=== PATIENT | female | born 1960 | race American Indian/Alaskan Native ===

== ENCOUNTER 2017-04-01 16:44 | Inpatient (IN) | payer BC, MEDICAID ==
[2017-04-01 16:44] VITALS: BMI 28.3
--- NOTE | 2017-04-01 17:15 | ED PDOC ---
Arrival/HPI - General Time Seen by Provider: 04/01/17 17:02 Historian: Patient - Critical Care Critical Care Minutes: 30 minutes - History of Present Illness Narrative History of Present Illness (Text): 04/01/17 17:12 56 yo female, h/o HTN, ? hyperthyroidism, presents to the ED c/o shortness of breathe x 1 day. States that it's worse on excertion but also just at rest she gets shortness of breathe. Some lower extremity swelling that is getting worse. She's supposed to be on a water pill but she hasn't taken it in a while. Today she felt lightheaded with some tingling to both hands/fingers. No cough or fever. No vomiting or diarrhea. No chest pain. PMD: Dr. Mead. Sent her here with a script that says h/o HTN and uncontrolled hyperthyroid with sob, tachy and shakes. please evaluate. Past Medical History - Provider Review Nursing Documentation Reviewed: Yes - Cardiac Hx Cardiac Disorders: Yes Hx Hypertension: Yes - Pulmonary Hx Respiratory Disorders: No - Neurological Hx Neurological Disorder: Yes Hx Dizziness: Yes - HEENT Hx HEENT Disorder: No - Renal Hx Renal Disorder: No - Endocrine/Metabolic Hx Endocrine Disorders: No - Hematological/Oncological Hx Blood Disorders: No - Integumentary Hx Dermatological Disorder: No - Musculoskeletal/Rheumatological Hx Musculoskeletal Disorders: No - Gastrointestinal Hx Gall Bladder Disease: No - Genitourinary/Gynecological Hx Genitourinary Disorders: No - Psychiatric Hx Psychophysiologic Disorder: No Hx Substance Use: No - Surgical History Hx Section: Yes Hx Hysterectomy: Yes - Suicidal Assessment Feels Threatened In Home Enviroment: No Family/Social History - Physician Review Nursing Documentation Reviewed: Yes Family/Social History: No Known Family HX Smoking Status: Former Smoker Hx Alcohol Use: Yes (1 beer 3xa week) Hx Substance Use: No Hx Substance Use Treatment: No Allergies/Home Meds Allergies/Adverse Reactions: Allergies No Known Allergies Allergy (Verified 04/01/17 17:52) Home Medications: Home Meds Medication Instructions Recorded Confirmed Amlodipine Besylate [Amlodipine 1 tab PO DAILY 08/12/14 04/01/17 Besylate] Hydrochlorothiazide 1 tab PO DAILY 08/12/14 04/01/17 [Hydrochlorothiazide] Review of Systems - Physician Review All systems were reviewed & negative as marked: Yes - Review of Systems Constitutional: Normal. absent: Fevers Eyes: Normal ENT: Normal Respiratory: SOB. absent: Cough, Sputum, Wheezing Cardiovascular: Normal. absent: Chest Pain Gastrointestinal: Normal. absent: Abdominal Pain Genitourinary Female: Normal Musculoskeletal: Normal Skin: Normal Neurological: Normal Endocrine: Normal Hemo/Lymphatic: Normal Psychiatric: Normal Physical Exam Vital Signs Reviewed: Yes Vital Signs Temp Pulse Resp BP Pulse Ox 04/01/17 17:46 97.6 F 106 H 18 134/69 100 Temperature: Afebrile Blood Pressure: Normal Pulse: Tachycardic Respiratory Rate: Normal Appearance: Positive for: Well-Appearing, Non-Toxic, Comfortable Pain Distress: None Mental Status: Positive for: Alert and Oriented X 3 - Systems Exam Head: Present: Atraumatic, Normocephalic Pupils: Present: PERRL Extroacular Muscles: Present: EOMI Conjunctiva: Present: Normal Mouth: Present: Moist Mucous Membranes Neck: Present: Normal Range of Motion Respiratory/Chest: Present: Clear to Auscultation, Good Air Exchange. No: Respiratory Distress, Accessory Muscle Use Cardiovascular: Present: Regular Rate and Rhythm, Normal S1, S2. No: Murmurs Abdomen: Present: Normal Bowel Sounds. No: Tenderness, Distention, Peritoneal Signs Back: Present: Normal Inspection Upper Extremity: Present: Normal Inspection. No: Cyanosis, Edema Lower Extremity: Present: Normal Inspection, Swelling (b/l lower extremity). No : Edema Neurological: Present: GCS=15, CN II-XII Intact, Speech Normal Skin: Present: Warm, Dry, Normal Color. No: Rashes Psychiatric: Present: Alert, Oriented x 3, Normal Insight, Normal Concentration Medical Decision Making ED Course and Treatment: 04/01/17 17:17 56 yo female with shortness of breathe, leg swelling r/o CHF r/o ACS, less likely PE -- Labs -- CXR, EKG -- Lasix 40mg IV -- Oxygen 2L NC -- Reevaluate and disposition 04/01/17 18:32 Case signed out to Dr. Mahajan to f/u labs, CXR, reevaluate and disposition. - Critical Care Critical Care Minutes: 30 minutes - RAD Interpretation Radiology Orders: 04/01/17 17:10 CHEST PORTABLE [RAD] Stat - EKG Interpretation Interpreted by ED Physician: Yes (Sinus Tachy at 111 bpm with PAC, LAE, no ST elevations) Type: 12 lead EKG - Medication Orders Current Medication Orders: Discontinued Medications Furosemide (Lasix) 40 mg IVP STAT STA Stop: 04/01/17 17:10 Disposition/Present on Arrival - Present on Arrival Any Indicators Present on Arrival: No History of DVT/PE: No History of Uncontrolled Diabetes: No Urinary Catheter: No History Surgical Site Infection Following: None - Disposition Have Diagnosis and Disposition been Completed?: No Diagnosis: Shortness of breath Disposition Time: 18:33 Condition: FAIR Referrals: Lena Mead MD [Primary Care Provider] - Follow up with primary
[2017-04-01 18:33] LABS: ADD MANUAL DIFF? NO
[2017-04-01 18:44] LABS: BASO # 0.02 K/mm3 (0.0-2.0); BASO % 0.3 % (0.0-3.0); EOS # 0.2 (0.0-0.7); EOS % 2.8 % (1.5-5.0); GRAN # 2.95 (1.4-6.5); GRAN % 48.4 % (50.0-68.0); HEMATOCRIT 39.9 % (36.0-48.0); LYMPH # 2.4 (1.2-3.4); LYMPH % 38.7 % (22.0-35.0); MEAN CELL VOLUME 89.7 fL (80.0-105.0); MEAN CORPUSCULAR HEMOGLOBIN 29.9 pg (25.0-35.0); MEAN CORPUSCULAR HGB CONC 33.3 g/dl (31.0-37.0); MEAN PLATELET VOLUME 9.3 fl (7.0-11.0); MONO # 0.6 (0.1-0.6); MONO % 9.8 % (1.0-6.0); PLATELET COUNT 292 10^3/uL (120.0-450.0); WHITE BLOOD COUNT 6.1 10^3/ul (4.5-11.0)
[2017-04-01 18:48] LABS: BLOOD UREA NITROGEN 13 mg/dL (7-21); CARBON DIOXIDE 28 mmol/L (21-33); CHLORIDE 101 mmol/L (98-107); GFR AFRICAN-AMERICAN > 60; GLUCOSE,RANDOM 105 mg/dL (70-110); POTASSIUM 3.9 mmol/L (3.6-5.0); SODIUM 139 mmol/L (132-148)
[2017-04-01 18:52] LABS: INR 1.01 (0.93-1.08); PARTIAL THROMBOPLASTIN TIME 26.7 Seconds (23.7-30.8)
[2017-04-01 18:53] LABS: D DIMER 0.31 mg/L FEU (0-0.50)
[2017-04-01 19:10] LABS: TROPONIN I < 0.01 ng/mL
--- NOTE | 2017-04-01 20:47 | ED PDOC ---
Physical Exam Vital Signs Reviewed: Yes Vital Signs Temp Pulse Resp BP Pulse Ox 04/01/17 18:35 138/75 04/01/17 18:00 18 04/01/17 17:46 97.6 F 106 H 18 134/69 100 Temperature: Afebrile Blood Pressure: Normal Pulse: Tachycardic Respiratory Rate: Normal Appearance: Positive for: Well-Appearing, Non-Toxic, Comfortable Pain Distress: None Mental Status: Positive for: Alert and Oriented X 3 Medical Decision Making ED Course and Treatment: 04/01/17 19:00 Case signed out to me from the day shift by Dr. Francis, pending labs, imaging, reevaluation and disposition. The patient is a 56 year old female who presented to the emergency department earlier today for evaluation of shortness of breath. Patient had a EKG which showed sinus tahcycardai at 111 BPM with PAC, LAE, and no ST elevations. On reevaluation, the patient is resting comfortably. concern for high output failure secondary to hyperthyroid will obs case d/w dr ferguson will accept case 04/01/17 20:53 Chest X-ray Impression: As read by me, no acute findings. 04/02/17 02:31 - Lab Interpretations Lab Results: 04/01/17 18:23 04/01/17 18:23 Lab Results 04/01/17 18:23: TSH 3rd Generation < 0.02 L 04/01/17 18:23: Sodium 139, Potassium 3.9, Chloride 101, Carbon Dioxide 28, Anion Gap 14, BUN 13, Creatinine 0.7, Est GFR ( Amer) > 60, Est GFR (Non- Af Amer) > 60, Random Glucose 105, Calcium 10.0, Lactate Dehydrogenase 435, Total Creatine Kinase 32 L, Troponin I < 0.01, NT-Pro-B Natriuret Pep 370 04/01/17 18:23: WBC 6.1, RBC 4.45, Hgb 13.3, Hct 39.9, MCV 89.7, MCH 29.9, MCHC 33.3, RDW 14.0, Plt Count 292, MPV 9.3, Gran % 48.4 L, Lymph % (Auto) 38.7 H, [place] % (Auto) 9.8 H, Eos % (Auto) 2.8, Baso % (Auto) 0.3, Gran # 2.95, Lymph # 2.4, [place] # 0.6, Eos # 0.2, Baso # 0.02 04/01/17 18:23: PT 10.9, INR 1.01, APTT 26.7, D-Dimer, Quantitative 0.31 I have reviewed the lab results: Yes - RAD Interpretation Radiology Orders: 04/01/17 17:10 CHEST PORTABLE [RAD] Stat - Medication Orders Current Medication Orders: Discontinued Medications Furosemide (Lasix) 40 mg IVP STAT STA Stop: 04/01/17 17:10 Last Admin: 04/01/17 18:35 Dose: 40 mg - Scribe Statement The provider has reviewed the documentation as recorded by the Africaibalejandra Garcia Provider Scribe Attestation: All medical record entries made by the Africaibe were at my direction and personally dictated by me. I have reviewed the chart and agree that the record accurately reflects my personal performance of the history, physical exam, medical decision making, and the department course for this patient. I have also personally directed, reviewed, and agree with the discharge instructions and disposition. Disposition/Present on Arrival - Present on Arrival Any Indicators Present on Arrival: No History of DVT/PE: No History of Uncontrolled Diabetes: No Urinary Catheter: No History of Decub. Ulcer: No History Surgical Site Infection Following: None - Disposition Have Diagnosis and Disposition been Completed?: Yes Diagnosis: Shortness of breath, Hyperthyroidism Disposition: HOSPITALIZED Disposition Time: 22:00 Patient Problems: Current Active Problems Problem Status Onset Shortness of breath Acute Condition: FAIR
[2017-04-01 21:22] LABS: PH,URINE 6.5 (4.7-8.0); URINE BILIRUBIN NEGATIVE (NEGATIVE); URINE BLOOD TRACE-INTACT (NEGATIVE); URINE GLUCOSE (UA) NEGATIVE (NEGATIVE); URINE KETONE NEGATIVE (NEGATIVE); URINE LEUKOCYTE ESTERASE NEGATIVE Leu/uL (NEGATIVE); URINE PROTEIN NEGATIVE mg/dL (<30 mg/dL); URINE UROBILINOGEN 0.2 E.U./dL (<1 E.U./dL)
[2017-04-01 21:24] LABS: URINE APPEARANCE CLEAR (CLEAR); URINE COLOR YELLOW (YELLOW)
[2017-04-01 21:48] LABS: URINE RBC 0 - 2 /hpf (0-2); URINE WBC NEGATIVE /hpf (0-6)
[2017-04-01] MEDS ORDERED: methIMAzole 5 MG TAB PO STA (22:18)
[2017-04-02] MEDS ORDERED: HYDROmorphone 0.5 mg/0.5 ml ISec IVP PRN (01:40)
--- NOTE | 2017-04-02 08:14 | RAD ---
HISTORY: sob r/o CHF COMPARISON: 06/17/2014. FINDINGS: LUNGS: The lungs are hyperinflated with chronic changes in both lungs. Lung markings are accentuated with mild pulmonary redistribution. No focal consolidation. PLEURA: No significant pleural effusion identified, no pneumothorax apparent. CARDIOVASCULAR: Normal. OSSEOUS STRUCTURES: No significant abnormalities. VISUALIZED UPPER ABDOMEN: Normal. OTHER FINDINGS: None. IMPRESSION: Mild pulmonary venous congestion. No focal consolidation. COPD.
[2017-04-02] MEDS: methIMAzole 5 MG TAB PO SCH (09:21)
--- NOTE | 2017-04-02 09:58 | CARD ---
APPROVED REPORT EKG Measurement Heart [id number] [place] [id number] [id number] <Conclusion> Sinus tachycardia with premature atrial complexes Possible Left atrial enlargement Borderline ECG
[2017-04-02] MEDS ORDERED: methIMAzole 5 MG TAB PO SCH (10:00)
[2017-04-02] MEDS ORDERED: AMLODIPINE BESYLATE PO SCH (10:00)
[2017-04-02] MEDS ORDERED: HYDROCHLOROTHIAZIDE PO SCH (10:00)
[2017-04-02 18:51] VITALS: RESP 20
--- NOTE | 2017-04-02 22:21 | CP.PCM.CON ---
History of Present Illness - History of Present Illness History of Present Illness: 56 yo female, h/o HTN, ? hyperthyroidism, presents to the ED c/o shortness of breathe x 1 day. States that it's worse on excertion but also just at rest she gets shortness of breathe. Some lower extremity swelling that is getting worse. She's supposed to be on a water pill but she hasn't taken it in a while. Today she felt lightheaded with some tingling to both hands/fingers. No cough or fever. No vomiting or diarrhea. No chest pain. Past Patient History - Infectious Disease Hx of Infectious Diseases: None - Past Social History Smoking Status: Former Smoker - CARDIAC Hx Cardiac Disorders: Yes Hx Congestive Heart Failure: Yes Hx Hypertension: Yes - PULMONARY Hx Respiratory Disorders: No - NEUROLOGICAL Hx Neurological Disorder: Yes Hx Dizziness: Yes - HEENT Hx HEENT Problems: No - RENAL Hx Chronic Kidney Disease: No - ENDOCRINE/METABOLIC Hx Endocrine Disorders: No - HEMATOLOGICAL/ONCOLOGICAL Hx Blood Disorders: No - INTEGUMENTARY Hx Dermatological Problems: No - MUSCULOSKELETAL/RHEUMATOLOGICAL Hx Musculoskeletal Disorders: No Hx Falls: Yes - GASTROINTESTINAL Hx Gall Bladder Disease: No - GENITOURINARY/GYNECOLOGICAL Hx Genitourinary Disorders: No - PSYCHIATRIC Hx Psychophysiologic Disorder: No - SURGICAL HISTORY Hx Hysterectomy: Yes Meds Allergies/Adverse Reactions: Allergies Allergy/AdvReac Type Severity Reaction Status Date / Time No Known Allergies Allergy Verified 04/01/17 17:52 - Medications Medications: Current Medications Acetaminophen (Tylenol 325mg Tab) 650 mg PO Q4H PRN PRN Reason: Pain, Mild (1-3) Last Admin: 04/02/17 01:45 Dose: 650 mg Amlodipine Besylate (Norvasc) 10 mg PEG DAILY [facility] Last Admin: 04/02/17 09:20 Dose: 10 mg Furosemide (Lasix) 40 mg IVP Q12 LAUREN Last Admin: 04/02/17 21:37 Dose: 40 mg Hydromorphone HCl (Dilaudid) 0.25 mg IVP Q4H PRN PRN Reason: severe pain Last Admin: 04/02/17 07:58 Dose: 0.25 mg Methimazole (Tapazole) 5 mg PO DAILY LAUREN Last Admin: 04/02/17 09:21 Dose: 5 mg Physical Exam - Constitutional Appears: Well - Head Exam Head Exam: ATRAUMATIC, NORMAL INSPECTION, NORMOCEPHALIC - Eye Exam Eye Exam: EOMI, Normal appearance, PERRL - ENT Exam ENT Exam: Mucous Membranes Moist, Normal Exam - Neck Exam Neck exam: Positive for: Normal Inspection - Respiratory Exam Respiratory Exam: Clear to Auscultation Bilateral, NORMAL BREATHING PATTERN - Cardiovascular Exam Cardiovascular Exam: REGULAR RHYTHM - Exam External exam: NORMAL EXTERNAL EXAM - Extremities Exam Extremities exam: Positive for: normal inspection - Back Exam Back exam: NORMAL INSPECTION - Neurological Exam Neurological exam: Alert, CN II-XII Intact, Normal Gait, Oriented x3, Reflexes Normal - Psychiatric Exam Psychiatric exam: Agitated - Skin Skin Exam: Dry, Intact, Normal Color, Warm Results - Vital Signs Recent Vital Signs: Last Vital Signs Temp 98.1 F 04/02/17 18:00 Pulse 98 H 04/02/17 18:00 Resp 20 04/02/17 18:00 BP 154/88 H 04/02/17 21:37 Pulse Ox 98 04/02/17 06:00 - Labs Result Diagrams: 04/01/17 18:23 04/01/17 18:23 Assessment & Plan (1) Bronchitis Status: Acute (2) HTN (hypertension) Status: Acute (3) Hyperthyroidism Status: Acute - Assessment and Plan (Free Text) Plan: methimazole, add beta edwin, avoid smoking, follow up labs
--- NOTE | 2017-04-02 23:29 | CP.PCM.PN ---
Subjective - Date & Time of Evaluation Date of Evaluation: 04/02/17 Time of Evaluation: 23:26 - Subjective Subjective: S:Patient was seen at bedside. Had requested stool softner. Last BM on Saturday. No nausea, no vomiting. Has Little cramps in abdomen. Medical record was reviewed. O: Last Vital Signs 3 Temp 98.1 F 04/02/17 18:00 Pulse 88 04/02/17 22:00 Resp 20 04/02/17 18:00 BP 154/88 H 04/02/17 21:37 Pulse Ox 98 04/02/17 06:00 Awake, alert , not in distress. LUNGS: Normal breathing pattern. ABD: No distension noted. A:Constipation. Colace 200 mg PO stat. Objective - Vital Signs/Intake and Output Vital Signs (last 24 hours): Temp Pulse Resp BP Pulse Ox 98.1 F 88 20 154/88 H 98 04/02/17 18:00 04/02/17 22:00 04/02/17 18:00 04/02/17 21:37 04/02/17 06:00 - Medications Medications: Current Medications Acetaminophen (Tylenol 325mg Tab) 650 mg PO Q4H PRN PRN Reason: Pain, Mild (1-3) Last Admin: 04/02/17 01:45 Dose: 650 mg Albuterol/Ipratropium (Duoneb 3 Mg/0.5 Mg (3 Ml) Ud) 3 ml IH [id number] LAUREN Aspirin (Ecotrin) 81 mg PO DAILY LAUREN Famotidine (Pepcid) 40 mg PO HS LAUREN Furosemide (Lasix) 40 mg IVP Q12 LAUREN Last Admin: 04/02/17 21:37 Dose: 40 mg Methimazole (Tapazole) 5 mg PO DAILY LAUREN Last Admin: 04/02/17 09:21 Dose: 5 mg - Labs Labs: PT 10.9 Seconds (9.9-11.8) 04/01/17 18:23 INR 1.01 (0.93-1.08) 04/01/17 18:23 APTT 26.7 Seconds (23.7-30.8) 04/01/17 18:23
[2017-04-03] MEDS: Albuterol-Ipratrop 3 mg / 0.5 (3 ml) UD IH SCH ×3 (01:10→13:41)
[2017-04-03 07:19] VITALS: TEMP 98.3; O2SAT 100
[2017-04-03 08:13] LABS: HEMATOCRIT 43.6 % (36.0-48.0); MEAN CELL VOLUME 90.1 fL (80.0-105.0); MEAN CORPUSCULAR HEMOGLOBIN 30.8 pg (25.0-35.0); MEAN CORPUSCULAR HGB CONC 34.2 g/dl (31.0-37.0); MEAN PLATELET VOLUME 9.8 fl (7.0-11.0); RED CELL DISTRIBUTION WIDTH 13.8 % (11.5-14.5); WHITE BLOOD COUNT 5.4 10^3/ul (4.5-11.0)
[2017-04-03 08:20] LABS: BLOOD UREA NITROGEN 22 mg/dL (7-21); CALCIUM 9.9 mg/dL (8.4-10.5); CARBON DIOXIDE 26 mmol/L (21-33); CHLORIDE 99 mmol/L (98-107); CHOLESTEROL 195 mg/dL (130-200); GFR AFRICAN-AMERICAN > 60; GLUCOSE,RANDOM 100 mg/dL (70-110); POTASSIUM 3.3 mmol/L (3.6-5.0); SODIUM 139 mmol/L (132-148)
[2017-04-03 08:26] LABS: IRON 63 ug/dL (45-180)
[2017-04-03 08:38] LABS: TROPONIN I < 0.01 ng/mL
[2017-04-03] MEDS ORDERED: Aminophylline 25 mg/ml Inj ONE (09:50)
[2017-04-03 13:00] LABS: FOLATE 11.5 ng/mL
--- NOTE | 2017-04-03 13:53 | CP.PCM.PN ---
Subjective - Date & Time of Evaluation Date of Evaluation: 04/03/17 Time of Evaluation: 12:00 - Subjective Subjective: 56 yo female, h/o HTN, ? hyperthyroidism, presents to the ED c/o shortness of breathe x 1 day. States that it's worse on excertion but also just at rest she gets shortness of breathe. Some lower extremity swelling that is getting worse. She's supposed to be on a water pill but she hasn't taken it in a while. Today she felt lightheaded with some tingling to both hands/fingers. No cough or fever. No vomiting or diarrhea. No chest pain. feel better today, stile SOB though Objective - Vital Signs/Intake and Output Vital Signs (last 24 hours): Temp Pulse Resp BP Pulse Ox 98.3 F 91 H 20 127/74 100 04/03/17 06:00 04/03/17 10:00 04/03/17 06:00 04/03/17 06:00 04/03/17 06:00 Intake and Output: 04/03/17 04/03/17 06:59 18:59 Intake Total 240 Output Total 0 Balance 240 - Medications Medications: Current Medications Acetaminophen (Tylenol 325mg Tab) 650 mg PO Q4H PRN PRN Reason: Pain, Mild (1-3) Last Admin: 04/02/17 01:45 Dose: 650 mg Albuterol/Ipratropium (Duoneb 3 Mg/0.5 Mg (3 Ml) Ud) 3 ml IH [id number] LAUREN Last Admin: 04/03/17 13:41 Dose: 3 ml Aspirin (Ecotrin) 81 mg PO DAILY LAUREN Famotidine (Pepcid) 40 mg PO HS LAUREN Furosemide (Lasix) 40 mg IVP Q12 LAUREN Last Admin: 04/02/17 21:37 Dose: 40 mg Methimazole (Tapazole) 5 mg PO DAILY LAUREN Last Admin: 04/02/17 09:21 Dose: 5 mg - Labs Labs: 04/03/17 08:00 04/03/17 08:00 PT 10.9 Seconds (9.9-11.8) 04/01/17 18:23 INR 1.01 (0.93-1.08) 04/01/17 18:23 APTT 26.7 Seconds (23.7-30.8) 04/01/17 18:23 - Constitutional Appears: Well - Head Exam Head Exam: ATRAUMATIC, NORMAL INSPECTION, NORMOCEPHALIC - Eye Exam Eye Exam: EOMI, Normal appearance, PERRL - ENT Exam ENT Exam: Mucous Membranes Moist, Normal Exam - Neck Exam Neck Exam: Full ROM, Normal Inspection. absent: Lymphadenopathy - Respiratory Exam Respiratory Exam: Clear to Ausculation Bilateral, NORMAL BREATHING PATTERN - Cardiovascular Exam Cardiovascular Exam: REGULAR RHYTHM, +S1, +S2. absent: Murmur - GI/Abdominal Exam GI & Abdominal Exam: Soft, Normal Bowel Sounds. absent: Tenderness - Extremities Exam Extremities Exam: Full ROM, Normal Capillary Refill, Normal Inspection. absent : Joint Swelling, Pedal Edema - Back Exam Back Exam: NORMAL INSPECTION - Neurological Exam Neurological Exam: Alert, Awake, CN II-XII Intact, Normal Gait, Oriented x3 - Psychiatric Exam Psychiatric exam: Agitated - Skin Skin Exam: Dry, Intact, Normal Color, Warm Assessment and Plan (1) Bronchitis Status: Acute (2) HTN (hypertension) Assessment & Plan: feels better, mild SOB Status: Acute (3) Hyperthyroidism Assessment & Plan: added propronalol Status: Acute - Assessment and Plan (Free Text) Plan: PFT as out patient
[2017-04-03] MEDS ORDERED: Potassium Chloride 20 mEq ER Tab PO ONE (13:54)
[2017-04-03] MEDS: methIMAzole 5 MG TAB PO SCH (14:15)
[2017-04-03 14:18] VITALS: BP 144/79; PULSE 100
--- NOTE | 2017-04-03 19:22 | CARD ---
APPROVED REPORT EXAM: Two-dimensional and M-mode echocardiogram with Doppler and color Doppler. INDICATION Dyspnea 2D DIMENSIONS Left Atrium (2D)4.0 (1.6-4.0cm)IVSd1.1 (0.7-1.1cm) LVDd3.1 (3.9-5.9cm)PWd1.1 (0.7-1.1cm) LVDs2.2 (2.5-4.0cm)FS (%) 28.3 % LVEF (%)56.2 (>50%) M-Mode DIMENSIONS Aortic Root2.90 (2.2-3.7cm)Aortic Cusp Exc.1.50 (1.5-2.0cm) Aortic Valve AoV Peak Sluskkhf557.0cm/Toby Peak GR.11mmHg Mitral Valve MV E Ffiucfjg98.7cm/sMV A Vjqhfbzh167.0cm/sE/A ratio0.6 TDI Lateral E' Peak V9.85cm/sMedial E' Peak V6.24cm/sE/Lateral E'6.2 E/Medial E'9.7 Pulmonary Valve PV Peak Pkwkyysc52.7cm/sPV Peak Grad.4mmHg Tricuspid Valve TR Peak Nvnfmsip444sx/sRAP UUOTGFTZ15roNpRE Peak Gr.20mmHg [id number] LEFT VENTRICLE The left ventricle is normal size. There is normal left ventricular wall thickness. The left ventricular function is normal.EF-55% There is normal LV segmental wall motion. Transmitral Doppler flow pattern is Grade III-reversible restrictive diastolic dysfunction. No left ventricle thrombus noted on this study. There is no ventricular septal defect visualized. There is no left ventricular aneurysm. There is no mass noted in the left ventricle. RIGHT VENTRICLE The right ventricle is normal size. There is normal right ventricular wall thickness. The right ventricular systolic function is normal. ATRIA The left atrium is borderline dilated. The right atrium size is normal. The atrial septum is aneurysmal. AORTIC VALVE The aortic valve is thickened but opens well. No aortic regurgitation is present. There is no aortic valvular stenosis. There is no aortic valvular vegetation. MITRAL VALVE The mitral valve is thickened but opens well. Mitral regurgitation is trace. There is no mitral valve stenosis. There is no evidence of mitral valve prolapse. TRICUSPID VALVE The tricuspid valve leaflets are thickened , but open well. There is trace tricuspid regurgitation.RVSP-30 mmof Hg. There is no tricuspid valve stenosis. There is no tricuspid valve prolapse or vegetation. PULMONIC VALVE The pulmonic valve is not well visualized. GREAT VESSELS The aortic root is normal in size. The ascending aorta is normal in size. The pulmonary artery is normal. The IVC is normal in size and collapses >50% with inspiration. PERICARDIAL EFFUSION There is no pleural effusion. There is no pericardial effusion. <Conclusion> The left ventricle is normal size. There is normal left ventricular wall thickness. The left ventricular function is normal.EF-55% Mitral regurgitation is trace. There is trace tricuspid regurgitation.RVSP-30 mmof Hg. The IVC is normal in size and collapses >50% with inspiration. There is no pericardial effusion. No Vegetation or thrombus noted.
--- NOTE | 2017-04-04 08:09 | CARD ---
APPROVED REPORT Protocol: LEXISCAN Test Type: Lexiscan Sestamibi Stress Test Attending Physician: Dr. Bg Davis Referring Physician: Dr. Tabatha Wright Test Indications: Chest Pain Height:5 ft 0 in Weight:170lbs Medications: Tylenol, DUoneb, Aspirin, Pepcid, Lasix, Tapazole Medical History: 56 y/o female with a history of htn, hyperthyroidism, CHF, lower leg edema Target HR: 164 bpm Resting ECG: RSR. Resting Heart Rate: 88 bpm Resting Blood Pressure: 140/74mmHg Submaximum (85%): 139 bpm PROCEDURE Pharmacologic stress testing was performed using 0.4mg per 5ml of regadenoson given intravenously over 7-10 seconds. Reversal agent aminophyline 100 mg, given intravenously for Nausea. POST EXERCISE Reason for Termination: Protocol completed Target HR: No Max HR: 97 bpm 70% of Maximum Predicted HR: 164 bpm Exercise duration: 00:30 min:sec, 0 Stage Exercise capacity: 1.0METs Max Blood Pressure: 150/79mmHg Blood Pressure response to exercise: normal resting BP - appropriate response Heart Rate response to exercise: appropriate Chest Pain: No, none Angina index: 0 Arrhythmia: No, none ST Change: No, none Deviation: 0 mm TEST SUMMARY [id number]. INFUSIONDOSE 100:[id number]/.0. [id number]. INTERPRETATION Stress EKG Conclusion: IV LEXISCAN NUCLEAR STRESS TEST NEGATIVE FOR CHEST PAIN AND NEGATIVE FOR ST-T CHANGES. NUCLEAR SCAN REPORT PENDING. Signed by Bg Davis Electronically Approved: 04/03/2017 11:04:44 EXAM: Myocardial Perfusion REST/STRESS Stress Test Type: Pharmacologic Imaging Protocol Rest Spect myocardial perfusion imaging was performed in supine position 45 minutes following the injection of 10.3 mCi of Tc-99 Myoview. At peak stress, the patient was injected intravenously with 30.9mCi of Tc-99 tetrofosmin after an infusion time of 0 minutes and 10 seconds. Gated Stress Spect was performed 60 minutes after intravenous Tc-99 Myoview injection. The images were gated to evaluate regional wall motion and calculate ventricular ejection fraction.Images were reconstructed using backfilter projection method in short horizontal and verticle long axis. Spect slices were generated. LV Perfusion The quality of the study is good. The left ventricle is normal in size. The right ventricle is unremarkable. The lung uptake is within normal limits. The distribution of tracer reveals normal uptake pattern throughout the LV myocardium on the stress study. The rest myocardial perfusion study shows no significant change. Wall Motion Wall motion study shows good contractility of the left ventricle. LVEF = 67%. Conclusion 1. Normal SPECT myocardial perfusion study. 2. Normal gated wall motion of the left ventricle. 3. In comparison with the last study of 08/12/2014, there is no significant change
== END 2017-04-03 18:37 | disposition home or self-care (01) | DRG 203 ==
LOC: ED 16:44 → ERH 20:30 → 2RSO 04-02 02:17 → OBSVTOIN 04-02 15:46
PROVIDERS: ADMIT Internal Medicine; ATTEND Internal Medicine
DX: J20.9 Acute bronchitis, unspecified (principal); I10 Essential (primary) hypertension; E05.90 Thyrotoxicosis, unspecified without thyrotoxic crisis or storm; K59.00 Constipation, unspecified; Z87.891 Personal history of nicotine dependence

== ENCOUNTER 2018-05-22 06:31 | Day surgery (SDC) | payer BC ==
[2018-05-09 13:06] VITALS: BMI 35.7
[2018-05-22] MEDS ORDERED: Lidocaine PF 2% (5 ml) Inj (For Cardiac Arrhy) ONE (07:05)
[2018-05-22] MEDS ORDERED: Iodixanol 320 MG/ML 200 ML BOTTLE IV ONE (07:06)
[2018-05-22] MEDS ORDERED: Nitroglycerin 50mg in D5W 0 MG/0 ML BOTTLE IV ONE (07:06)
[2018-05-22] MEDS ORDERED: Iohexol 350mgl/ml 50 ML ONE (07:06)
[2018-05-22] MEDS ORDERED: Iodixanol 320 MG/ML 100 ML BOTTLE IV ONE (07:06)
[2018-05-22] MEDS ORDERED: Phenylephrine 10 mg/ml Inj ONE (07:06)
[2018-05-22 07:39] LABS: BASO # 0.03 K/mm3 (0.0-2.0); BASO % 0.4 % (0.0-3.0); EOS # 0.5 (0.0-0.7); EOS % 6.3 % (1.5-5.0); GRAN # 4.71 (1.4-6.5); GRAN % 62.6 % (50.0-68.0); HEMOGLOBIN 13.5 g/dL (12.0-16.0); LYMPH # 1.9 (1.2-3.4); LYMPH % 24.6 % (22.0-35.0); MEAN CELL VOLUME 90.4 fl (80.0-105.0); MEAN CORPUSCULAR HEMOGLOBIN 30.8 pg (25.0-35.0); MEAN PLATELET VOLUME 9.4 fl (7.0-11.0); MONO # 0.5 (0.1-0.6); MONO % 6.1 % (1.0-6.0); RBC 4.39 10^6/uL (3.5-6.1); RED CELL DISTRIBUTION WIDTH 15.5 % (11.5-14.5); WHITE BLOOD COUNT 7.5 10^3/ul (4.5-11.0)
[2018-05-22] MEDS ORDERED: Midazolam 2 MG/2 ML VIAL ONE ×2 (07:47→08:04)
[2018-05-22 07:49] LABS: INR 1.01; PARTIAL THROMBOPLASTIN TIME 32.1 Seconds (25.1-36.5); PROTHROMBIN TIME 11.6 SECONDS (9.4-12.5)
[2018-05-22 07:54] LABS: BLOOD UREA NITROGEN 29 mg/dL (7-21); CALCIUM 9.9 mg/dL (8.4-10.5); GFR AFRICAN-AMERICAN > 60; GFR NON-AFRICAN AMERICAN 51
[2018-05-22] MEDS ORDERED: Sodium Chloride 0.9% 1,000 ML IV SCH (08:45)
[2018-05-22 08:52] VITALS: RESP 18
[2018-05-22 08:58] VITALS: TEMP 98.2
--- NOTE | 2018-05-22 09:04 | CARDCATH ---
Copied To: Mekhi Driscoll MD Attending MD: Mekhi Driscoll MD PROCEDURE DATE: 05/22/2018 CARDIAC CATHETERIZATION HISTORY: The patient is a 57-year-old woman with a TIA in the past and hypertension, who presents with an abnormal stress test. Because of this, a cardiac catheterization was recommended. PROCEDURE: Left heart catheterization with coronary arteriography and left ventriculogram. The right femoral artery was cannulated with a 6-Occitan sheath. There were no complications. I performed moderate sedation with a trained observer observing her neurologic status as well as her hemodynamics during the procedure. After fentanyl and Versed, my overall conscious sedation time was 15 minutes. The findings on catheterization revealed a left ventricle that contracted normally. Estimated ejection fraction 60%. Her coronary anatomy revealed a left dominant circulation. The RCA was a small vessel, revealed intimal irregularities without critical lesions. The left main artery was unremarkable. The LAD and diagonal vessels were free of significant disease. The circumflex artery was a large vessel and revealed intimal irregularities without critical lesions. Angio-Seal was used to close the femoral artery site. The patient tolerated the procedure well. In summary, the procedure revealed mild intimal irregularity throughout the coronary tree with a left dominant circulation. No critical lesions. LV function is normal. Given these findings, the patient's treatment needs to be a cardiac risk reduction program. She can discontinue her Plavix. We will continue her on a cardiac risk reduction program with followup in 2-3 weeks as an outpatient. Mekhi Driscoll MD
[2018-05-22 10:54] VITALS: O2SAT 95
--- NOTE | 2018-05-22 13:23 | CARD ---
APPROVED REPORT Date of service: 05/22/2018 EKG Measurement Heart [id number] HI [id number] <Conclusion> Normal sinus rhythm Moderate voltage criteria for LVH, may be normal variant Prolonged QT Abnormal ECG
[2018-05-22 13:26] VITALS: BP 176/84; PULSE 60
== END 2018-05-22 14:57 | disposition home or self-care (01) ==
LOC: CATH 06:31
PROVIDERS: ATTEND Internal Medicine Cardiovascular Disease
DX: R94.39 Abnormal result of other cardiovascular function study (principal); I10 Essential (primary) hypertension; Z86.73 Personal history of transient ischemic attack (TIA), and cerebral infarction without residual deficits
CPT/HCPCS: 36415; 80048; 85025; 85610; 85730; 86850; 86900; 93005; 93458; 99152; 99153; C1760; C1769; C2629; J1644; J2250; J3010; J7030; J7040; Q9966